=== PATIENT | female | born 1975 | race African-American/Black ===

== ENCOUNTER 2016-06-26 17:28 | Emergency (ER) ==
[2016-06-26] MEDS ORDERED: ZITHROMAX PO ONE (19:25)
[2016-06-26] MEDS ORDERED: FLAGYL PO ONE (19:29)
--- NOTE | 2016-06-26 19:39 | PROVIDER DOCUMENTATION ---
HPI-Female /OB/Breast - General Chief Complaint: Abscess Stated Complaint: ABSCESS Time Seen by Provider: 06/26/16 19:20 Source: reports: patient Allergies/Adverse Reactions: Patient Allergies Allergy/AdvReac Type Severity Reaction Status Date / Time Penicillins Allergy SWELLING Verified 09/07/14 15:01 Home Medications: Home Medication List Medication Instructions Recorded Confirmed Last Taken Type Doxycycline 100 mg PO BID #20 capsule 06/26/16 Unknown Rx Fluconazole [Diflucan] 150 mg PO DAILY #2 tablet 06/26/16 Unknown Rx - History of Present Illness-Female /OB Nature of Presenting Problem: 40 yo female presents to the emergency room with a possible abscess to her vaginal area that is painful and tender to touch X 2 months. Reports was seen at [facility] X 2 months ago and was told she had a cyst. Reports she is using the salve they give her and it is not helping. Denies fever, chills , bodyaches, dysuria, urine frequency, vaginal discharge, vaginal bleeding, N/V/ D or shortness of breath Does patient report she is ?: No Location of complaint: reports: vaginal Quality of Pain: reports: throbbing Onset/Duration: reports: other (2 months ago) Timing: reports: still present Vaginal Bleeding Amount: None Urinary Symptoms: reports: no symptoms Related Symptoms: reports: no symptoms Review of Systems - Adult - REVIEW OF SYSTEMS - ADULT Constitutional: denies: chills, fever Eyes: reports: no symptoms reported Ears, Nose, Mouth & Throat: reports: no symptoms reported Cardiovascular: reports: no symptoms reported Respiratory: reports: no symptoms reported Gastrointestinal: reports: no symptoms reported Genitourinary: reports: other (possibly abscess to vaginal area). denies: dysuria, discharge, frequency, frequent UTI's Musculoskeletal: reports: no symptoms reported Integumentary: reports: no symptoms reported Neurological: reports: no symptoms reported Psychiatric: reports: no symptoms reported Endocrine: reports: no symptoms reported Hematologic/Lymphatic: reports: no symptoms reported Allergic/Immunologic: reports: no symptoms reported All Other Systems: Reviewed and Negative Past History - Adult - PAST MEDICAL HISTORY-ADULT Review of Records: reports: Nursing Assessment Review, Medications Reviewed Major Childhood Illnesses: reports: denies history - PRIOR SURGERIES/PROCEDURES Surgical/Procedure History: reports: hysterectomy - IMMUNIZATION STATUS Childhood Immunizations: See Nurse Assessment Flu Vaccine: See Nurse Assessment - SOCIAL HISTORY Smoking: cigarettes, less than 1 pack/day Provider spent 3-5 mins advising pt. on dangers of tobacco.: Discussed manners to quit use, and f/u contacts for add'l counseling. Physical Exam-General - PHYSICAL EXAM-ADULT Initial Vital Signs Reviewed: Yes - CONSTITUTIONAL General Appearance: appears well, alert, no apparent distress - EYES Eyes: PERRL/EOMI, pink conjunctivae - HEAD, EARS, NOSE, MOUTH & THROAT HENMT: normocephalic/atraumatic, moist mucous membranes, normal ENT inspection - NECK Neck: full range of motion, supple - RESPIRATORY Respiratory: lungs clear, normal breath sounds - CARDIOVASCULAR Cardiovascular: normal peripheral pulses, regular rate, rhythm - GASTROINTESTINAL (ABDOMEN) Abdominal Exam: non tender, soft - GENITOURINARY Female Genitalia/Pelvic Exam: other (2 cm raised genital lesion noted to left labia) - MUSCULOSKELETAL Extremity: normal range of motion, normal inspection, normal capillary refill - SKIN Integumentary: normal color, normal turgor, warm/dry Progress - PLAN OF CARE/RESULTS Progress/Plan/Lab Results: Laboratory Tests 06/26/16 19:45 Urine Source CLEAN CATCH Urine Color YELLOW Urine Clarity CLEAR Urine pH 8.0 Ur Specific [place] 1.015 Urine Protein TRACE A Urine Ketones NEGATIVE Urine Blood NEGATIVE Urine Nitrite NEGATIVE Urine Bilirubin NEGATIVE Urine Urobilinogen 3+(8 mg/dL) Urine Microscopic RBC <10 Urine WBC TRACE A Urine Microscopic WBC <10 Ur Epithelial Cells <10 Urine Bacteria NEGATIVE Urine Yeast PRESENT Urine Glucose NEGATIVE Orders Category Date Time Status CHLAMYDIA AND GC BY PCR URINE [CONSTABLE] Stat Lab 06/26/16 19:[address] [URINALYSIS] Stat Lab 06/26/16 19:45 Completed URINE MICROSCOPIC [URINALYSIS] Stat Lab 06/26/16 19:45 Completed Azithromycin [Zithromax] Med 06/26/16 19:25 Discontinued 1,000 mg PO NOW ONE Metronidazole [Flagyl] Med 06/26/16 19:42 Discontinued 2,000 mg .ROUTE .STK-MED ONE Metronidazole [Flagyl] Med 06/26/16 19:29 Discontinued 2,000 mg PO NOW ONE Vital Signs - 24 hr 06/26/16 06/26/16 17:58 21:11 Temperature 98.6 F 98 F Pulse Rate 71 65 Respiratory 20 16 Rate Blood Pressure 92/54 128/88 O2 Sat by Pulse 98 97 Oximetry - CHANGE OF SHIFT REPORT (ED Provider) Report Given and Care Transferred to:: [email or web address] Time of Transfer: 20:00 Items Pending: Labs (stable) Departure - Departure Time of Disposition Order: 20:40 DIAGNOSIS: Vaginal lesion Disposition: HOME 01 Certified Medical Emergency: Emergent Condition: Stable Additional Instructions: ED Follow Up Instructions: You have been treated by a care provider in the Emergency Department. These instructions are being provided to you so you can have an understanding of how to care for yourself upon discharge. Upon discharge from the Emergency Department, you are responsible for making arrangements for follow-up care by a physician of your choice. Take all prescribed medications as directed. Return to the Emergency Department immediately for any new or worsening symptoms. You may call the Physician Referral phone number at [phone] to obtain a list of Physicians who are taking new patients. Prescriptions: Fluconazole [Diflucan] 150 mg PO DAILY #2 tablet Doxycycline 100 mg PO BID #20 capsule Referrals: Conrad Acevedo MD [STAFF PHYSICIAN] - None,PCP [Primary Care Provider] - Forms: Return to School/Parent Work Instructions: Doxycycline tablets or capsules Attestation - Physician/ CAILIN Attestation Patient care was provided by Advanced Practice Provider:: Yes Advanced Practice Provider:: Galina Martinez Advanced Practice Provider documentation review:: The Mid-level provider documentation, treatment plan and medical decision making was reviewed by the physician who agrees with all treatment and medical decision making by the P. The physician spent face to face time with patient:: Yes
[2016-06-26] MEDS ORDERED: FLAGYL ONE (19:42)
[2016-06-26 19:54] LABS: URINE SOURCE CLEAN CATCH
[2016-06-26 20:09] LABS: BILIRUBIN URINE NEGATIVE (NEGATIVE); BLOOD URINE NEGATIVE (NEGATIVE); CLARITY CLEAR (CLEAR); COLOR YELLOW; GLUCOSE URINE NEGATIVE (NEGATIVE); LEUKOCYTES URINE TRACE (NEGATIVE); NITRITE URINE NEGATIVE (NEGATIVE); PROTEIN URINE TRACE mg/dL (NEGATIVE); SP GRAVITY URINE 1.015; URINE MICROSCOPIC NEEDED? YES
[2016-06-26 20:12] LABS: URINE EPITHELIAL CELLS <10 /HPF (<10); URINE RBC <10 /HPF (<10); URINE WBC <10 /HPF (<10)
[2016-06-26 20:16] LABS: UROBILINOGEN URINE 3+(8 mg/dL)
[2016-06-26 21:11] VITALS: BP 128/88
== END 2016-06-26 21:15 | disposition home or self-care (01) ==
LOC: P.ED 17:28
DX: N90.9 Noninflammatory disorder of vulva and perineum, unspecified (principal); F17.210 Nicotine dependence, cigarettes, uncomplicated; Z71.6 Tobacco abuse counseling
CPT/HCPCS: 81001; 87491; 87591; 99283